=== PATIENT | female | born 1990 | race African-American/Black ===

== ENCOUNTER 2017-05-18 14:15 | Emergency (ER) | payer OTHER ==
[2017-05-18 14:43] VITALS: BP 101/67; BMI 32.0
[2017-05-18] MEDS ORDERED: IBUPROFEN 600 MG TABLET (FP) PO ONE (15:02)
--- NOTE | 2017-05-18 15:08 | PDOC ---
History of Present Illness - General Chief Complaint: Cold Symptoms Stated Complaint: COLD SYMPTOMS Time Seen by Provider: 05/18/17 14:54 History Source: Patient, Parent(s) Exam Limitations: No Limitations - History of Present Illness Initial Comments: 05/18/17 Patient came for evaluation of high fevers, body aches, headache and joint pain , moist nonproductive cough, and sore throat. 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 Has used ibuprofen with minimal resolved. Did not receive flu shot Timing/Duration: reports: constant, getting worse Severity: reports: mild, moderate Associated Symptoms: reports: cough, dizziness, fever/chills, headache, sore throat Past History - Travel Traveled outside of the country in the last 30 days: No Close contact w/someone who was outside of country & ill: No - Past Medical History Allergies/Adverse Reactions: Allergies Allergy/AdvReac Type Severity Reaction Status Date / Time No Known Drug Allergies Allergy Verified 05/18/17 15:03 Home Medications: Ambulatory Orders Azithromycin [Zithromax -] 250 mg PO UTDICT #6 tab 05/18/17 Metformin HCl [Glucophage -] 500 mg PO BID 05/18/17 Anemia: Yes (Sickle cell) COPD: No DVT: No Dementia: No Diabetes: No Disorders: Yes (polycystic Ovary Dx) - Immunization History Immunization Up to Date: Yes - Suicide/Smoking/Psychosocial Hx Smoking Status: No Smoking History: Never smoked Number of Cigarettes Smoked Daily: 0 Information on smoking cessation initiated: No Hx Alcohol Use: No Drug/Substance Use Hx: No Substance Use Type: None Review of Systems - Review of Systems Able to Perform ROS?: Yes Is the patient limited Prydeinig proficient: Yes Constitutional: Yes: Symptoms Reported, See HPI, Fever, Loss of Appetite, Malaise HEENTM: Yes: Symptoms Reported, Nose Congestion, Throat Pain, Throat Swelling Respiratory: Yes: Symptoms reported, See HPI, Cough. No: Wheezing Musculoskeletal: Yes: Symptoms Reported Integumentary: Yes: Symptoms Reported, See HPI Neurological: Yes: Symptoms reported, See HPI, Headache All Other Systems: Reviewed and Negative *Physical Exam - Vital Signs Last Vital Signs Temp Pulse Resp BP Pulse Ox 103 F H 118 H 18 101/67 98 05/18/17 14:37 05/18/17 14:37 05/18/17 14:37 05/18/17 14:37 05/18/17 14:37 - Physical Exam General Appearance: Yes: Nourished, Appropriately Dressed, Apparent Distress, Mild Distress, Moderate Distress HEENT: positive: ALETHEA, Normal ENT Inspection, TMs Normal, Pharynx Normal Respiratory/Chest: positive: Lungs Clear, Normal Breath Sounds Gastrointestinal/Abdominal: positive: Soft. 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 Patient discussed to start if fevers worsen, purulent drainage from nose or phlegm production starts or symptoms worsen. otherwise continue conservative treatment. repeat temp after ibuprofen 101.2 *DC/Admit/Observation/Transfer Diagnosis at time of Disposition: Viral syndrome - Discharge Dispostion Disposition: HOME Condition at time of disposition: Stable Admit: No - Prescriptions Prescriptions: Azithromycin [Zithromax -] 250 mg PO UTDICT #6 tab - Referrals Referrals: Tenzin Swenson MD [Primary Care Provider] - - Patient Instructions Printed Discharge Instructions: DI for Viral Upper Respiratory Infection -- Adult Additional Instructions: Rest, drink lots of fluids: Teas, water, soups, Pedialyte Saltwater gargles Steamy showers/seem to face break up mucus Avoid contact with others until fevers and cough resolved Lots of handwashing and good hygiene Continue [id number] medications for symptomatic relief Tylenol or Motrin for fever and pain Start azithromycin if fevers worsened, nasal drainage turns yellow or green, phlegm production, or symptoms worsen Followup with private physician in one to 2 days as needed Return to emergency department for worsened symptoms, fevers, dehydration - Post Discharge Activity Forms/Work/School Notes: Back to Work
[2017-05-18 15:56] VITALS: PULSE 112; TEMP 100.7
== END 2017-05-18 15:56 | disposition home or self-care (01) ==
LOC: JERFT 14:15 → JER 14:15 → JERFT 15:56
DX: J06.9 Acute upper respiratory infection, unspecified (principal); B97.89 Other viral agents as the cause of diseases classified elsewhere; E11.9 Type 2 diabetes mellitus without complications; Z79.84 Long term (current) use of oral hypoglycemic drugs; D57.1 Sickle-cell disease without crisis; E28.2 Polycystic ovarian syndrome
CPT/HCPCS: 87804; 99281-25

== ENCOUNTER 2018-09-24 09:12 | Inpatient (IN) | payer OTHER ==
[2018-09-24] MEDS ORDERED: PROMETHAZINE HCL 25 MG/1 ML VIAL IVPB ONE (09:57)
[2018-09-24] MEDS ORDERED: BUTORPHANOL TARTRATE 1 MG/ML VIAL IVPUSH ONE (09:57)
[2018-09-24] MEDS ORDERED: AMPICILLIN - 2 GM in SODIUM CHLORIDE 100 ML IVPB ONE (09:58)
[2018-09-24] MEDS: DEXTROSE 5%-LACTATED RINGERS 1,000 ML IV SCH ×2 (10:00→18:18)
[2018-09-24 10:52] LABS: BASO % 0.6 % (0-2.0); EOS % 0.5 % (0-4.5); HEMATOCRIT 33.7 % (32.4-45.2); LYMPH % 31.2 % (8-40); MCHC 32.7 g/dl (32.0-36.0); MEAN CELL VOLUME 82.8 fl (80-96); MEAN PLT VOLUME 8.4 fl (7.5-11.1); MONO % 12.4 % (3.8-10.2); NEUT % 55.3 % (42.8-82.8); PLATELET COUNT 343 K/MM3 (134-434); RBC 4.07 M/mm3 (3.60-5.2); RDW 15.5 % (11.6-15.6)
[2018-09-24] MEDS ORDERED: AMPICILLIN SODIUM 2 GM VIAL ONE ×2 (11:18→19:22)
[2018-09-24] MEDS ORDERED: SODIUM CHLORIDE 100 ML IVPB ONE (11:18)
[2018-09-24 11:24] LABS: BLOOD UREA NITROGEN 9 mg/dL (7-18); CALCIUM 9.1 mg/dL (8.5-10.1); CHLORIDE 106 mmol/L (98-107); CO2 26 mmol/L (21-32); GLUCOSE,RANDOM 75 mg/dL (74-106); POTASSIUM 4.4 mmol/L (3.5-5.1); SODIUM 138 mmol/L (136-145)
[2018-09-24 11:29] LABS: INR 0.97 (0.83-1.09); PROTHROMBIN TIME (PATIENT) 11.4 SEC (9.7-13.0)
[2018-09-24 11:30] VITALS: BMI 30.9
[2018-09-24 11:32] LABS: ACTIVATED PTT 27.5 SECONDS (25.2-36.5)
[2018-09-24 11:35] LABS: ANION GAP 7 MMOL/L (8-16)
[2018-09-24] MEDS ORDERED: TUBERCULIN PPD 5 TU/0.1ML SYRINGE (IN PATIENT USE ONLY) ID ONE (12:00)
--- NOTE | 2018-09-24 12:41 | HP ---
Past Medical History - Admission History of Present Illness: 28 yo @ 37 3/7 wks by first trimester ultrasound, EDC 10/12/2018 complicated by: 1. PCOS / infertility conceived with metformin and clomid 2. Poor weight gain during ~ 2 lbs Starting wt 164 (BMI 28) 3. Sickle Cell Trait - FOB not tested 4. Carpal Tunnel Syndrome - managed by OT / Plastics 5. GBS positive - no allergies Patient presents with chief complaint of contractions that began at 0830 and leakage of clear fluid. She reports movement, denies vaginal bleeding. Limitations to Obtaining History: No Limitations - Past Medical History Cardiovascular: No: HTN Pulmonary: No: Asthma Gastrointestinal: No: GERD Reproductive: Yes: Polycystic Ovary Syndrome ...: 1 ...Para: 0 ...Term: 0 ...: 0 ...Spon : 0 ...Induced : 0 ...LMP: 01/06/18 ... Weeks Gestation by Dates: 37.2 ...EDC by Dates: 10/13/18 ...EDC by Sono: 10/12/18 Heme/Onc: No: Anemia Musculoskeletal: Yes: Other (scoliosis) - Past Surgical History Past Surgical History: Yes: None Hx Myomectomy: No Hx Transabdominal Cerclage: No - Smoking History Smoking history: Never smoked Have you smoked in the past 12 months: No Aproximately how many cigarettes per day: 0 - Alcohol/Substance Use Hx Alcohol Use: No - Social History History of Recent Travel: No Home Medications - Allergies Allergies/Adverse Reactions: Allergies Allergy/AdvReac Type Severity Reaction Status Date / Time No Known Drug Allergies Allergy Verified 05/18/17 15:03 - Home Medications Home Medications: Ambulatory Orders Azithromycin [Zithromax -] 250 mg PO UTDICT #6 tab 05/18/17 Prenat 115/Iron Fum/Folic/Dss [ 19 Tablet] 1 tab PO DAILY 09/24/18 Family Disease History - Family Disease History Family History: Denies Review of Systems - Review of Systems Constitutional: reports: No Symptoms Cardiovascular: reports: No Symptoms Respiratory: reports: No Symptoms Gastrointestinal: reports: No Symptoms Musculoskeletal: reports: No Symptoms Neurological: reports: No Symptoms Endocrine: reports: No Symptoms Physical Exam - Maternity Vital Signs: Vital Signs Temperature 98.2 F 09/24/18 10:00 Pulse Rate 100 H 09/24/18 11:00 Respiratory Rate 20 09/24/18 11:00 Blood Pressure 140/78 09/24/18 11:00 O2 Sat by Pulse Oximetry (%) Constitutional: Yes: Well Nourished, No Distress, Calm Cardiovascular: Yes: Regular Rate and Rhythm Lungs: Clear to auscultation - Abdominal Exam/OB Number of Fetuses: Single Contractions: Yes Regularity: Regular Intensity: Mod/Strong Heart Rate (range): 135 Category: I Accelerations: Non-Uniform - Vaginal Exam/OB Vaginal Bleediing: No Dilatation (cm): 2 Effacement (%): 90 Amniotic Membrane Status: Ruptured Presentation: Vertex/Position Station: -4 - Physical Exam Psychiatric: Yes: Alert, Oriented - Labs Lab Results: CBC, BMP 09/24/18 10:30 09/24/18 10:30 PNL - B positive; antibody negative; RPR NR HIV neg HCV neg HBsAg neg; Varicella Immune; Rubella immune; Hg [place] ; GCT WNL; AFP WNL; GBS positive Assessment/Plan 28 yo @ 37 + wks in labor 1. Admit to L&D 2. Routine labs collected and sent 3. Consents reviewed and signed 4. GBS positive, will start ampicillin per protocol 5. Will offer pain medication upon patient request 6. Will proceed with expectant management
--- NOTE | 2018-09-24 13:32 | PN ---
Ante-Partal Exam - Subjective Subjective: Patient reports pain with contractions Vital Signs: Vital Signs Temperature 98.2 F 09/24/18 10:00 Pulse Rate 100 H 09/24/18 11:00 Respiratory Rate 20 09/24/18 11:00 Blood Pressure 140/78 09/24/18 11:00 O2 Sat by Pulse Oximetry (%) Bleeding: No Headache: No Visual changes: No Right upper quadrant pain: No - Contractions Contractions: Yes Regularity: Regular Intensity: Mod/Strong Monitor Mode: External - Exam during Labor Heart Rate: 145 Variability: Moderate Category: I Monitor Accelerations: Present Monitor Decelerations: None Exam: Vaginal Dilatation (cm): 6 Effacement (%): 90 Amniotic Membrane Status: Ruptured (clear fluid) Amniotic Fluid: Clear Presentation: Vertex Station: -3 - Intrapartum Hemorrhage Risk Medium Risk Factors: None High Risk Factors: None Risk Score: 0 Risk Level: Low Risk - Assessment/Plan Assessment/Plan: 28 yo active labor 1. Good cervical change 2. GBS positive - on ampicillin 3. Desires IV medication 4. Category I FHT 5. Will proceed wt expectant management
[2018-09-24] MEDS ORDERED: PROMETHAZINE HCL 25 MG/1 ML VIAL ONE ×2 (13:36→19:22)
[2018-09-24] MEDS: AMPICILLIN - 1 GM in SODIUM CHLORIDE 100 ML IVPB SCH ×2 (15:20→20:00)
[2018-09-24] MEDS ORDERED: AMPICILLIN SODIUM 1 GM VIAL ONE ×2 (15:22→15:30)
--- NOTE | 2018-09-24 19:07 | PN ---
Ante-Partal Exam - Subjective Subjective: Patient reports pain with contractoins Vital Signs: Vital Signs Temperature 98.8 F 09/24/18 14:00 Pulse Rate 85 09/24/18 16:50 Respiratory Rate 20 09/24/18 16:50 Blood Pressure 134/96 09/24/18 16:50 O2 Sat by Pulse Oximetry (%) Bleeding: No Headache: No Visual changes: No Right upper quadrant pain: No - Contractions Contractions: Yes Regularity: Regular Intensity: Mod/Strong Monitor Mode: External - Exam during Labor Heart Rate: 130 Variability: Moderate Category: I Monitor Accelerations: Present Monitor Decelerations: None Exam: Vaginal Dilatation (cm): 7 Effacement (%): 90 Amniotic Membrane Status: Ruptured Presentation: Vertex Station: -1 - Intrapartum Hemorrhage Risk Medium Risk Factors: None High Risk Factors: None Risk Score: 0 Risk Level: Low Risk - Assessment/Plan Assessment/Plan: 28 yo active labor 1. Good cervical change 2. Ampicillin for GBS 3. Decliens epidural, will continue IV pain medication 4. Will continue expectant management
[2018-09-24] MEDS ORDERED: BUTORPHANOL TARTRATE 2 MG/ML VIAL ONE (19:21)
[2018-09-24] MEDS ORDERED: BUTORPHANOL TARTRATE 2 MG/ML VIAL IVPUSH ONE (19:30)
[2018-09-24] MEDS ORDERED: PROMETHAZINE HCL 25 MG/1 ML VIAL IVPUSH ONE (19:30)
[2018-09-24] MEDS ORDERED: OXYTOCIN 20 UNITS in 0.9% NS 20 UNIT/1,000 ML INFUS.BAG IV ONE (20:26)
[2018-09-24] MEDS ORDERED: LIDOCAINE HCL 1% PRESERVATIVE FREE - 30ML VIAL ONE (20:26)
--- NOTE | 2018-09-24 20:52 | PN ---
Delivery - Delivery Vaginal Delivery: No Problems Type of Anesthesia: None Episiotomy/Laceration: 1st degree EBL (cc): 300 Delivery, Single - Stages of Labor Date 1st Stage Initiatied: 09/24/18 Date 2nd Stage Initiated: 09/24/18 Date of Delivery: 09/24/18 Time of Delivery: 20:35 Date Placenta Delivered: 09/24/18 Time Placenta Delivered: 20:44 - Condition of Infant Gender: Male Position: Left, OA - 1 Minute Total Score: 9 5 Minutes Total Score: 9 - [place] Feeding Plan Initial Plan: Elected not to breastfeed exclusively throughout hospitalization Remarks - Remarks Remarks: Patient progressed to fully dilated and at 2034 via delivered a viable male infant in AURA position, APGARs 9,9. Weight and length unknown at this time. Head delivered spontaneously. Right anterior shoulder noted to be difficult, left posterior shoulder delivered without difficulty followed by anterior right shoulder and body without difficulty. Infant with spontaneous cry and placed on mother's abdomen. Nose and mouth was bulb suctioned. Cord was clamped and cut. Perineum and vagina examined, a first degree laceration was noted and repaired in the usual fashion. Placenta was delivered spontaneously and intact. 20 units of pitocin in 1 L IVF was given. All counts correct x 2. Mother and stable in LDR. EBL 300cc.
[2018-09-24] MEDS ORDERED: BENZOCAINE 20% 57 GM BOTTLE TP PRN (20:53)
[2018-09-24] MEDS ORDERED: BISACODYL 10 MG SUPP.RECT RC PRN (20:53)
[2018-09-24] MEDS ORDERED: BENZOCAINE 28 GM HEMORRHOIDAL OINTMENT TP PRN (20:53)
[2018-09-24] MEDS ORDERED: IBUPROFEN 600 MG TABLET (FP) PO PRN (20:53)
[2018-09-24] MEDS ORDERED: ACETAMINOPHEN 325 MG TABLET (FP) PO PRN (20:53)
[2018-09-24] MEDS ORDERED: WITCH HAZEL 50% (TUCKS) 40 PAD/JAR PAD TP PRN (20:53)
[2018-09-24] MEDS ORDERED: METHYLERGONOVINE MALEATE 0.2 MG/1 ML AMP IM PRN (20:53)
[2018-09-24] MEDS ORDERED: OXYTOCIN 20 UNITS in 0.9% NS 20 UNIT/1,000 ML INFUS.BAG IV SCH (21:00)
[2018-09-25 07:16] LABS: BASO % 0.3 % (0-2.0); EOS % 0.1 % (0-4.5); HEMATOCRIT 31.9 % (32.4-45.2); HEMOGLOBIN 10.3 GM/dL (10.7-15.3); LYMPH % 19.4 % (8-40); MCH 27.1 pg (25.7-33.7); MCHC 32.3 g/dl (32.0-36.0); MEAN CELL VOLUME 83.7 fl (80-96); MEAN PLT VOLUME 8.2 fl (7.5-11.1); MONO % 10.4 % (3.8-10.2); NEUT % 69.8 % (42.8-82.8); PLATELET COUNT 287 K/MM3 (134-434); RBC 3.81 M/mm3 (3.60-5.2); RDW 15.8 % (11.6-15.6); WHITE BLOOD COUNT 12.6 K/mm3 (4.0-10.0)
--- NOTE | 2018-09-25 08:07 | PN ---
Post Progress Note - Subjective Subjective: Patient without acute complaints. Reports tolerating oral intake without nausea or vomiting. Ambulating without dizziness. Denies fevers or chills. Pain well controlled with oral pain medication. without difficulty. Passing flatus. Type of Delivery: Vital Signs: Vital Signs Temperature 98 F 09/25/18 06:00 Pulse Rate 100 H 09/25/18 06:00 Respiratory Rate 18 09/25/18 06:00 Blood Pressure 124/90 09/25/18 06:00 O2 Sat by Pulse Oximetry (%) Breast Exam: Yes: Soft Uterus: Yes: Fundus Firm, Fundus below umbilicus Abdomen/GI: Yes: Abdomen soft, Passing flatus, Tolerating PO. No: Abdominal Distention Lochia: Yes: Serosa Lochia, amount: Small Extremities: Yes: Calves non-tender, Edema (trace) Activity: Ambulating - Labs Labs: CBC WBC 12.6 K/mm3 (4.0-10.0) H 09/25/18 06:30 RBC 3.81 M/mm3 (3.60-5.2) 09/25/18 06:30 Hgb 10.3 GM/dL (10.7-15.3) L 09/25/18 06:30 Hct 31.9 % (32.4-45.2) L 09/25/18 06:30 MCV 83.7 fl (80-96) 09/25/18 06:30 MCH 27.1 pg (25.7-33.7) 09/25/18 06:30 MCHC 32.3 g/dl (32.0-36.0) 09/25/18 06:30 RDW 15.8 % (11.6-15.6) H 09/25/18 06:30 Plt Count 287 K/MM3 (134-434) 09/25/18 06:30 MPV 8.2 fl (7.5-11.1) 09/25/18 06:30 Absolute Neuts (auto) 8.8 K/mm3 (1.5-8.0) H 09/25/18 06:30 Neutrophils % 69.8 % (42.8-82.8) D 09/25/18 06:30 Lymphocytes % 19.4 % (8-40) D 09/25/18 06:30 Monocytes % 10.4 % (3.8-10.2) H 09/25/18 06:30 Eosinophils % 0.1 % (0-4.5) 09/25/18 06:30 Basophils % 0.3 % (0-2.0) 09/25/18 06:30 Nucleated RBC % 0 % (0-0) 09/25/18 06:30 Assessment/Plan 28 yo ppd#1 s/p , afebrile, vital signs stable, doing well 1. Continue routine care. 2. AM CBC with mild anemia, will start ferrous sulfate 3. Rh positive status, no rhogam indicated. 4. Encourage ambulation 5. Continue oral pain medication 6. Anticipate discharge home day #2
[2018-09-25] MEDS: FERROUS SO4 325 MG TABLET (FP) PO SCH ×3 (10:27→17:38)
[2018-09-25] MEDS: PRENATAL VITAMINS W/ FOLIC ACID TABLET (FP) PO SCH (10:27)
[2018-09-25] MEDS: DEXTROSE 5%-LACTATED RINGERS 1,000 ML IV SCH (20:33)
[2018-09-25] MEDS: AMPICILLIN - 1 GM in SODIUM CHLORIDE 100 ML IVPB SCH (20:53)
[2018-09-25] MEDS ORDERED: SENNOSIDES/DOCUSATE COMBO (SENNA PLUS) TABLET (UD) PO PRN (22:00)
--- NOTE | 2018-09-26 07:19 | DS ---
Physical Exam-DIRECTOR TECHNICAL Vital Signs: Vital Signs Temperature 98.2 F 09/25/18 22:00 Pulse Rate 89 09/25/18 22:00 Respiratory Rate 18 09/25/18 22:00 Blood Pressure 125/85 09/25/18 22:00 O2 Sat by Pulse Oximetry (%) Constitutional: Yes: Well Nourished, No Distress, Calm Eyes: Yes: WNL, Conjunctiva Clear, EOM Intact HENT: Yes: WNL, Atraumatic, Normocephalic Neck: Yes: WNL, Supple, Trachea Midline Cardiovascular: Yes: WNL, Regular Rate and Rhythm Respiratory: Yes: WNL, Regular, CTA Bilaterally Gastrointestinal: Yes: WNL ...Rectal Exam: Yes: WNL Renal/: Yes: WNL ....Post : Yes: Uterus firm, Uterus non-tender, Slight lochia rubra Breast(s): Yes: WNL Musculoskeletal: Yes: WNL Extremities: Yes: WNL Edema: No Integumentary: Yes: WNL Neurological: Yes: WNL, Alert, Oriented ...Motor Strength: WNL Psychiatric: Yes: WNL, Alert, Oriented Labs: CBC, BMP 09/25/18 06:30 09/24/18 10:30 Delivery - Delivery Vaginal Delivery: No Problems, Spontaneous Type of Anesthesia: None Episiotomy/Laceration: 1st degree EBL (cc): 300 Delivery, Single - Stages of Labor Date 1st Stage Initiatied: 09/24/18 Time 1st Stage Initiated: 08:20 Date 2nd Stage Initiated: 09/24/18 Time 2nd Stage Initiated: 20:00 Date of Delivery: 09/24/18 Time of Delivery: 20:35 Time Placenta Delivered: 20:44 Placenta: Yes: Spontaneous - Condition of Shank 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 You may walk unlimited viviana of and climb stairs. You may resume driving the car when you feel safe and comfortable behind the wheel. No sexual activity as instructed. Diet There are no dietary restrictions. Eat healthy, high-fiber foods. Drink 6 to 8 glasses of liquid each day. This will assist in keeping your bowels are regular. Pain management You may take Tylenol or acetaminophen or Ibuprofen (for example, Motrin, Advil etc.) from my pain prescription medication is ordered should be taken as prescribed for moderate to severe pain. Call MD for any of the following: Severe pain not relieved by medication Fever of 101 or higher Excessive bleeding or drainage on dressing Inability to urinate Referrals: Tenzin Swenson MD [Staff Physician] - Disposition: HOME - Home Medications Comprehensive Discharge Medication List: Ambulatory Orders Azithromycin [Zithromax -] 250 mg PO UTDICT #6 tab 05/18/17 Prenat 115/Iron Fum/Folic/Dss [ 19 Tablet] 1 tab PO DAILY 09/24/18 Ibuprofen [Motrin -] 600 mg PO QID #28 tablet 09/25/18
[2018-09-26] MEDS: FERROUS SO4 325 MG TABLET (FP) PO SCH ×2 (09:11→13:39)
[2018-09-26] MEDS: PRENATAL VITAMINS W/ FOLIC ACID TABLET (FP) PO SCH (09:12)
[2018-09-26 14:59] VITALS: BP 126/82; PULSE 86; TEMP 98.3
--- NOTE | 2018-09-29 15:07 | PATH ---
Surgical Pathology Report Patient Name: MEHUL BURNS Med. Rec. 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 Electronically Signed Radha Farias M.D. Gross Description The specimen is received fresh labeled placenta and is a 450 gram, 23.0 x 15.0 x 1.7 cm. placenta with attached membranes and umbilical cord. The attached membranes are awan, translucent with focal opacities and insert marginally. The umbilical cord measures 35 cm. in length and averages 1.1 cm. in diameter. The cord inserts eccentrically, 2 cm. to the nearest margin. No true knots or strictures are identified. Cut surface of the umbilical cord reveals 3 vessels. The surface is mckeon-blue with minimal fibrin deposition and appropriate caliber vessels. The maternal surface is red-brown with focal defects. Sectioning reveals red-brown, spongy parenchyma. No lesions are identified. Senior Landscape Architect sections are submitted in three cassettes as follows: 1- membrane rolls and umbilical cord; 2-3- full thickness sections of placenta. /09/26/2018 [place]09/26/2018
== END 2018-09-26 13:30 | disposition home or self-care (01) | DRG 560 ==
LOC: JDEL 09:12 → JLDR 09:40 → J3W 22:47
PROVIDERS: ADMIT Obstetrics & Gynecology; ATTEND Obstetrics & Gynecology
PROC: 10E0XZZ Delivery of Products of Conception, External Approach (ICD-10-PCS; principal; 2018-09-24)
PROC: 0HQ9XZZ Repair Perineum Skin, External Approach (ICD-10-PCS; 2018-09-24)
DX: O99.824 Streptococcus B carrier state complicating childbirth (principal); M41.9 Scoliosis, unspecified; O70.0 First degree perineal laceration during delivery; O99.013 Anemia complicating pregnancy, third trimester; D57.3 Sickle-cell trait; O99.283 Endocrine, nutritional and metabolic diseases complicating pregnancy, third trimester; E28.2 Polycystic ovarian syndrome; O26.893 Other specified pregnancy related conditions, third trimester; Z3A.37 37 weeks gestation of pregnancy; Z37.0 Single live birth
CPT/HCPCS: 36415; 59409; 80048; 85025; 85610; 85730; 86593; 86850; 86900; 86901; 88307-TC

== ENCOUNTER 2018-11-13 17:51 | Emergency (ER) | payer OTHER ==
[2018-11-13] MEDS ORDERED: TETRACAINE 0.5% HCL 0.6ML DROPPER.BOTTLE OD ONE (17:55)
--- NOTE | 2018-11-13 17:55 | PDOC ---
Rapid Medical Evaluation Time Seen by Provider: 11/13/18 17:54 Medical Evaluation: Allergies Allergy/AdvReac Type Severity Reaction Status Date / Time No Known Drug Allergies Allergy Verified 09/24/18 21:22 11/13/18 17:54 I have performed a brief in-person evaluation of this patient. The patient presents with a chief complaint of: pt reports playing w/ nephew and getting struck to R eye and it's getting worse Pertinent physical exam findings: injected, swollen R eye I have ordered the following: tetracaine The patient will proceed to the ED for further evaluation.
[2018-11-13 17:57] VITALS: BP 123/89; PULSE 97; TEMP 98.5; BMI 27.4
[2018-11-13] MEDS ORDERED: ERYTHROMYCIN 0.5% OPHTHALMIC OINTMENT 3.5 GM TUBE OD ONE (19:02)
[2018-11-13] MEDS ORDERED: ERYTHROMYCIN 0.5% OPHTHALMIC OINTMENT 3.5 GM TUBE ONE (19:05)
--- NOTE | 2018-11-13 19:06 | PDOC ---
History of Present Illness - General Chief Complaint: Eye Problem Stated Complaint: PAINFUL RT EYE Time Seen by Provider: 11/13/18 17:54 History Source: Patient Exam Limitations: No Limitations - History of Present Illness Initial Comments: 11/13/18 19:01 HISTORY OF PRESENT ILLNESS: This is a 28-year-old woman denies medical history presents emergency Department with right eye pain for 2 days status post accidental poking her right eye. She was playing with her infant nephew when he reached up poking her in the right eye with his index finger. She noted increased pain since that time. She denies any change in vision since the incident. No recent travel or sick contacts. PAST MEDICAL HISTORY: Denies past medical history SURGICAL HISTORY: Denies ALLERGIES: No known drug allergies REVIEW OF SYSTEMS General/Constitutional: Denies fever or chills. Denies weakness, weight change. HEENT: see HPI Cardiovascular: Denies chest pain or shortness of breath. Respiratory: Denies cough, wheezing, or hemoptysis. Gastrointestinal: Denies nausea, vomiting, diarrhea or constipation. Denies rectal bleeding. Genitourinary: Denies dysuria, frequency, or change in urination. Musculoskeletal: Denies joint or muscle swelling or pain. Denies neck or back pain. Skin and breasts: Denies rash or easy bruising. Neurologic: Denies headache, vertigo, loss of consciousness, or loss of sensation. Psychiatric: Denies depression or anxiety. Endocrine: Denies increased thirst. Denies abnormal weight change. Hematologic/Lymphatic: Denies anemia, easy bleeding, or history of blood clots. Allergic/Immunologic: Denies hives or skin allergy. Denies latex allergy. PHYSICAL EXAM General Appearance: Well-appearing, appropriately dressed. No apparent distress , no intoxication. HEENT: EOMI, PERRLA, normal ENT inspection, normal voice, TMs normal, pharynx normal. No conjunctival pallor. No photophobia, scleral icterus. No hyphema. No changes s/p fluoroscein staining. No foreign body present under upper eyelid. Neck: Supple. Trachea midline. No tenderness, rigidity, carotid bruit, stridor , lymphadenopathy, or thyromegaly. Respiratory/Chest: Lungs CTAB. No shortness of breath, chest tenderness, respiratory distress, accessory muscle use. No crackles, rales, rhonchi, stridor , wheezing, dullness Cardiovascular: RRR. S1, S2. No JVD, murmur, bradycardia, tachycardia. Past History - Past Medical History Allergies/Adverse Reactions: Allergies Allergy/AdvReac Type Severity Reaction Status Date / Time No Known Drug Allergies Allergy Verified 11/13/18 18:52 Home Medications: Ambulatory Orders Erythromycin 0.5% Eye Ointment [Erythromycin 0.5% Eye Ointment -] 1 applic OD TID #1 tube 11/13/18 Anemia: Yes (Sickle cell) Asthma: No Cancer: No Cardiac Disorders: No COPD: No DVT: No Dementia: No Diabetes: No Disorders: Yes (polycystic Ovary Dx) HTN: No Seizures: No Thyroid Disease: No - Immunization History Immunization Up to Date: Yes - Suicide/Smoking/Psychosocial Hx Smoking Status: No Smoking History: Never smoked Have you smoked in the past 12 months: No Number of Cigarettes Smoked Daily: 0 Hx Alcohol Use: No Drug/Substance Use Hx: No Substance Use Type: None Hx Substance Use Treatment: No *Physical Exam - Vital Signs Last Vital Signs Temp Pulse Resp BP Pulse Ox 98.5 F 97 H 18 123/89 97 11/13/18 17:55 11/13/18 17:55 11/13/18 17:55 11/13/18 17:55 11/13/18 17:55 Medical Decision Making - Medical Decision Making 11/13/18 19:05 A/P: 28-year-old woman with right thigh pain for 2 days EYE EXAMINATION: Visual acuity: 20/20 in the left eye, 20/20 in the right eye, near, uncorrected The lid and lashes are normal. Extraocular movements are intact. The conjunctiva is clear without erythema, injection, or discharge The corneal surface is normal post tetracaine and fluorescein. There is no corneal abrasion or foreign body. There is no abnormal fluorescein uptake. The pupils are equal, round and reactive to light. The fundus shows normal vessels and normal discs. No foreign bodies present under the upper eyelid. Erythromycin ointment here now. Discharge home with erythromycin ointment and up the pneumology follow-up. *DC/Admit/Observation/Transfer Diagnosis at time of Disposition: Corneal irritation Qualifiers: Laterality: right Qualified Code(s): H18.891 - Other specified disorders of cornea, right eye - Discharge Dispostion Disposition: HOME Condition at time of disposition: Stable Decision to Admit order: No - Prescriptions Prescriptions: Erythromycin 0.5% Eye Ointment [Erythromycin 0.5% Eye Ointment -] 1 applic OD TID #1 tube - Referrals Referrals: Parker Neumann MD [Primary Care Provider] - Alo Pena MD [Staff Physician] - Tao Davis MD [Staff Physician] - - Patient Instructions Additional Instructions: Rest, avoid rubbing eyes Wash hands frequently as this is very contagious Wash hands, use eye drops as directed, wash hands after use Do not share eye ointment with other person to may become infected as this will infect them Erthromycin ointment to affected eye 4 times a day for 5 days Avoid contact with others until redness and discharge is gone from eyes. Followup with ophthalmology or private physician as needed - Post Discharge Activity
== END 2018-11-13 19:10 | disposition home or self-care (01) ==
LOC: JERFT 17:51
DX: S05.8X1A Other injuries of right eye and orbit, initial encounter (principal); W50.0XXA Accidental hit or strike by another person, initial encounter; Y93.89 Activity, other specified; Y92.89 Other specified places as the place of occurrence of the external cause; Y99.8 Other external cause status
CPT/HCPCS: 99281-25

== ENCOUNTER 2020-05-19 09:50 | Emergency (ER) | payer OTHER | END 2020-05-19 11:34 | disposition home or self-care (01) | LOC: JVIRT 09:50 | DX: Z11.59 Encounter for screening for other viral diseases (principal) | CPT/HCPCS: C9803; Q3014-GT; U0003 ==

== ENCOUNTER 2020-06-20 15:57 | Emergency (ER) | payer OTHER ==
[2020-06-20 16:55] VITALS: BMI 28.3
[2020-06-20] MEDS ORDERED: ASPIRIN 81 MG CHEWABLE TABLETS PO ONE (18:14)
[2020-06-20] MEDS ORDERED: hydrOXYzine PAMOATE 25 MG CAPSULE (FP) PO ONE ×2 (18:15→19:59)
[2020-06-20] MEDS ORDERED: MAG HYDROX/AL HYDROX/SIMETH 30 ML UNIT-DOSE CUP PO ONE (18:15)
[2020-06-20] MEDS ORDERED: ASPIRIN 81 MG CHEWABLE TABLETS ONE (19:58)
[2020-06-20] MEDS ORDERED: MAG HYDROX/AL HYDROX/SIMETH 30 ML UNIT-DOSE CUP ONE (19:59)
[2020-06-20 20:34] LABS: BASO % 0.5 % (0-2.0); EOS % 1.3 % (0-4.5); HEMATOCRIT 39.4 % (32.4-45.2); HEMOGLOBIN 13.2 GM/dL (10.7-15.3); LYMPH % 34.4 % (8-40); MCHC 33.4 g/dl (32.0-36.0); MEAN CELL VOLUME 92.7 fl (80-96); MEAN PLT VOLUME 7.8 fl (7.5-11.1); MONO % 5.6 % (3.8-10.2); NEUT % 58.2 % (42.8-82.8); PLATELET COUNT 393 K/MM3 (134-434); RBC 4.25 M/mm3 (3.60-5.2); RDW 12.7 % (11.6-15.6); WHITE BLOOD COUNT 8.6 K/mm3 (4.0-10.0)
[2020-06-20 20:40] LABS: INR 1.03 (0.83-1.09); PROTHROMBIN TIME (PATIENT) 12.4 SEC (9.7-13.0)
[2020-06-20 20:42] LABS: ACTIVATED PTT 30.2 SECONDS (25.2-36.5)
[2020-06-20 20:57] LABS: PH,URINE 6.5 (5.0-8.0); URINE APPEARANCE CLOUDY; URINE BILIRUBIN NEGATIVE (NEGATIVE); URINE COLOR YELLOW; URINE GLUCOSE (UA) NEGATIVE (NEGATIVE); URINE KETONE NEGATIVE (NEGATIVE); URINE LEUK ESTERASE NEGATIVE (NEGATIVE); URINE NITRITE NEGATIVE (NEGATIVE); URINE PROTEIN NEGATIVE (NEGATIVE); URINE UROBILINOGEN 0.2 mg/dL (0.2-1.0)
[2020-06-20 21:00] LABS: HCG,QUALITATIVE URINE Negative
[2020-06-20 21:01] LABS: CHLORIDE 108 mmol/L (98-107); POTASSIUM 4.4 mmol/L (3.5-5.1); SODIUM 141 mmol/L (136-145)
[2020-06-20 21:03] LABS: CALCIUM 9.3 mg/dL (8.5-10.1)
[2020-06-20 21:04] LABS: ALBUMIN 4.2 g/dl (3.4-5.0); ANION GAP 8 MMOL/L (8-16); BLOOD UREA NITROGEN 13.7 mg/dL (7-18); CO2 26 mmol/L (21-32); GLUCOSE,RANDOM 75 mg/dL (74-106); MAGNESIUM 1.9 mg/dL (1.8-2.4)
[2020-06-20 21:07] LABS: CREATININE 0.9 mg/dL (0.55-1.3); SGOT/AST 11 U/L (15-37); SGPT/ALT 19 U/L (13-61)
[2020-06-20 21:08] LABS: BILIRUBIN,TOTAL 0.7 mg/dL (0.2-1); TOT PROT 8.1 g/dl (6.4-8.2)
[2020-06-20 21:09] LABS: ALK PHOS 63 U/L (45-117)
[2020-06-20 21:44] VITALS: BP 122/86; PULSE 86; TEMP 98.3
[2020-06-21 00:01] LABS: RETICULOCYTES 1.27 % (0.5-1.5)
== END 2020-06-20 21:44 | disposition home or self-care (01) ==
LOC: JER 15:57
DX: R07.89 Other chest pain (principal)
CPT/HCPCS: 36415; 71046-TC-FY; 80053; 81003; 82550; 82553; 83735; 84484; 84703; 85025; 85045; 85379; 85610; 85730; 87086; 93005; 93010; 99285-25

== ENCOUNTER 2020-08-12 10:35 | Emergency (ER) | payer OTHER | END 2020-08-12 11:25 | disposition home or self-care (01) | LOC: JVIRT 10:35 | DX: Z20.822 Contact with and (suspected) exposure to COVID-19 (principal) | CPT/HCPCS: C9803; G2251-GT; Q3014-GT; U0003 ==

== ENCOUNTER 2020-11-18 13:59 | Emergency (ER) | payer OTHER ==
[2020-11-18 14:56] VITALS: BP 114/81; PULSE 113; TEMP 98.6; BMI 27.6
== END 2020-11-18 17:30 | disposition home or self-care (01) ==
LOC: JER 13:59
DX: R20.2 Paresthesia of skin (principal)
CPT/HCPCS: 99283-25

== ENCOUNTER 2021-11-17 20:04 | Emergency (ER) | payer OTHER ==
[2021-11-17 20:34] VITALS: BP 110/75; PULSE 77; TEMP 98.9; BMI 26.5
[2021-11-17 20:56] LABS: HEMATOCRIT 36.9 % (32.4-45.2); HEMOGLOBIN 13.2 G/dL (10.7-15.3); MCH 32.1 pg (25.7-33.7); MCHC 35.6 g/dl (32.0-36.0); MEAN CELL VOLUME 89.9 fl (80-96); MEAN PLT VOLUME 7.2 fl (7.5-11.1); PLATELET COUNT 376.2 10^3/uL (134-434); RDW 13.9 % (11.6-15.6); WHITE BLOOD COUNT 7.3 10^3/uL (4.0-10.8)
[2021-11-17 21:06] LABS: PLATELET ESTIMATE ADEQUATE
[2021-11-17 21:14] LABS: ALBUMIN 4.1 g/dl (3.4-5.0); BILIRUBIN,TOTAL 0.6 mg/dl (0.2-1); CALCIUM 9.6 mg/dl (8.5-10); CREATININE 0.9 mg/dl (0.55-1.3); TOT PROT 7.5 g/dl (6.4-8.2)
== END 2021-11-17 21:31 | disposition home or self-care (01) ==
LOC: FER 20:04
DX: R42 Dizziness and giddiness (principal)
CPT/HCPCS: 36415; 80053; 81025; 85025; 99283-25

== ENCOUNTER 2022-07-09 18:36 | Emergency (ER) | payer OTHER ==
[2022-07-09] MEDS ORDERED: ACETAMINOPHEN 500 MG TABLET (FP) PO ONE (18:50)
[2022-07-09 18:53] VITALS: BP 123/90; PULSE 84; RESP 16; TEMP 98.3; BMI 31.1
[2022-07-09] MEDS ORDERED: ACETAMINOPHEN 500 MG TABLET (FP) ONE (19:05)
== END 2022-07-09 20:50 | disposition home or self-care (01) ==
LOC: FER 18:36
DX: R20.2 Paresthesia of skin (principal)
CPT/HCPCS: 72125-TC; 84703; 99284-25

== ENCOUNTER 2023-09-05 18:29 | Inpatient (IN) | payer OTHER ==
[2023-09-05 20:34] LABS: BASO % 0.4 % (0-2.0); EOS % 0.7 % (0-4.5); HEMATOCRIT 34.6 % (32.4-45.2); HEMOGLOBIN 11.4 GM/dL (10.7-15.3); LYMPH % 32.5 % (8-40); MCH 27.9 pg (25.7-33.7); MCHC 32.8 g/dl (32.0-36.0); MEAN CELL VOLUME 84.9 fl (80-96); MONO % 10.2 % (3.8-10.2); NEUT % 56.2 % (42.8-82.8); PLATELET COUNT 389 10^3/uL (134-434); RBC 4.08 M/mm3 (3.60-5.2); RDW 15.7 % (11.6-15.6); WHITE BLOOD COUNT 6.9 K/mm3 (4.0-10.0)
[2023-09-05 20:42] LABS: INR 0.99 (0.83-1.09); PROTHROMBIN TIME (PATIENT) 11.5 SEC (9.7-13.0)
[2023-09-05 20:45] LABS: ACTIVATED PTT 24.4 SECONDS (25.2-36.5)
[2023-09-05 21:06] LABS: POTASSIUM 4.2 mmol/L (3.5-5.1)
[2023-09-05 21:07] LABS: CALCIUM 9.2 mg/dL (8.5-10.1)
[2023-09-05 21:08] LABS: BLOOD UREA NITROGEN 8.4 mg/dL (7-18)
[2023-09-05 21:12] LABS: CREATININE 0.8 mg/dL (0.55-1.3)
[2023-09-05] MEDS: LACTATED RINGERS SOLUTION 1,000 ML IV SCH (21:15)
[2023-09-05] MEDS ORDERED: PROMETHAZINE HCL 25 MG/1 ML VIAL ONE (21:21)
[2023-09-05] MEDS ORDERED: BUTORPHANOL TARTRATE 2 MG/ML VIAL ONE (21:21)
[2023-09-05] MEDS: PROMETHAZINE HCL 25 MG/1 ML VIAL IVPB ONE (21:30)
[2023-09-05] MEDS: BUTORPHANOL TARTRATE 1 MG/ML VIAL IVPUSH ONE (21:30)
[2023-09-05 21:51] VITALS: BMI 33.6
[2023-09-05 22:06] LABS: HIV INTERPRETATION NEGATIVE (NEGATIVE)
[2023-09-05] MEDS ORDERED: LIDOCAINE HCL 1% PRESERVATIVE FREE - 30ML VIAL ONE (22:06)
[2023-09-05] MEDS ORDERED: OXYTOCIN 20 UNITS in 0.9% NS 20 UNIT/1,000 ML INFUS.BAG IV ONE (22:07)
[2023-09-06] MEDS: OXYTOCIN 20 UNITS in 0.9% NS 20 UNIT/1,000 ML INFUS.BAG IV SCH (01:20)
[2023-09-06] MEDS ORDERED: METHYLERGONOVINE MALEATE 0.2 MG/1 ML AMP IM PRN (01:31)
[2023-09-06] MEDS ORDERED: BISACODYL 10 MG SUPP.RECT RC PRN (01:31)
[2023-09-06] MEDS ORDERED: BENZOCAINE 28 GM HEMORRHOIDAL OINTMENT TP PRN (01:31)
[2023-09-06] MEDS ORDERED: oxyCODONE HCL 5 MG TABLET PO PRN (01:31)
[2023-09-06 02:00] LABS: CORD HCO3 19.9 mmHg (20-29); CORD PCO2 40.4 mmHg (30-78); CORD pH 7.31 (7.14-7.44)
[2023-09-06] MEDS: DEXTROSE 5%-LACTATED RINGERS 1,000 ML IV SCH (02:40)
[2023-09-06] MEDS: OXYTOCIN 30 UNITS in 0.9% NS 30 UNIT/500 ML INFUS.BAG IVPB SCH (02:41)
[2023-09-06 12:38] LABS: POC NITRAZINE POS
[2023-09-06] MEDS: IBUPROFEN 600 MG TABLET (FP) PO PRN (20:50)
[2023-09-06] MEDS: BENZOCAINE 20% 57 GM BOTTLE TP PRN (20:53)
[2023-09-06] MEDS: WITCH HAZEL 50% (TUCKS) 40 PAD/JAR PAD TP PRN (20:53)
[2023-09-06 21:28] VITALS: RESP 18
[2023-09-07] MEDS: ACETAMINOPHEN 325 MG TABLET (FP) PO PRN (03:47)
[2023-09-07 08:13] LABS: BASO % 0.3 % (0-2.0); EOS % 1.1 % (0-4.5); HEMATOCRIT 33.1 % (32.4-45.2); HEMOGLOBIN 10.9 GM/dL (10.7-15.3); MCH 27.8 pg (25.7-33.7); MCHC 32.8 g/dl (32.0-36.0); MEAN CELL VOLUME 84.7 fl (80-96); MEAN PLT VOLUME 7.8 fl (7.5-11.1); MONO % 8.9 % (3.8-10.2); NEUT % 55.7 % (42.8-82.8); PLATELET COUNT 359 10^3/uL (134-434); RBC 3.91 M/mm3 (3.60-5.2); RDW 15.7 % (11.6-15.6); WHITE BLOOD COUNT 9.6 K/mm3 (4.0-10.0)
[2023-09-07] MEDS ORDERED: SENNOSIDES/DOCUSATE COMBO (SENNA PLUS) TABLET (UD) PO PRN (22:00)
[2023-09-08 09:49] VITALS: BP 107/71; PULSE 98; TEMP 97.8
== END 2023-09-08 11:41 | disposition home or self-care (01) | DRG 560 ==
LOC: JDEL 18:29 → JLDR 19:15 → J3W 09-06 04:26
PROVIDERS: ADMIT Obstetrics & Gynecology; ATTEND Obstetrics & Gynecology
PROC: 10E0XZZ Delivery of Products of Conception, External Approach (ICD-10-PCS; principal; 2023-09-06)
PROC: 0W8NXZZ Division of Female Perineum, External Approach (ICD-10-PCS; 2023-09-06)
DX: O80 Encounter for full-term uncomplicated delivery (principal); Z3A.38 38 weeks gestation of pregnancy; Z37.0 Single live birth
CPT/HCPCS: 36415; 36600; 80048; 82803; 83986-QW; 85025; 85610; 85730; 86780; 86850; 86900; 86901; 87389

== ENCOUNTER 2024-11-19 11:37 | Inpatient (IN) | payer OTHER ==
[2024-11-19] MEDS: ELECTROLYTE-148 SOLN 1,000 ML IV SCH (12:30)
[2024-11-19 12:46] LABS: ABSOLUTE IMMATURE GRANULOCYTES 0.04 x10^3/uL (0.0-0.031); BASOPHILS # 0.02 x10^3/uL (0.01-0.08); EOSINOPHIL % 0.6 % (0.7-5.8); EOSINOPHILS # 0.05 x10^3/uL (0.04-0.36); HEMATOCRIT 33.6 % (34.1-44.9); HEMOGLOBIN 10.6 g/dL (11.2-15.7); MCHC 31.5 g/dl (32.2-35.5); MEAN CELL VOLUME 84.8 fl (79.4-94.8); MEAN PLT VOLUME 9.7 fl (9.4-12.3); MONOCYTE # 0.74 x10^3/uL (0.24-0.86); MONOCYTE % 9.2 % (4.7-12.5); PLATELET COUNT 372 x10^3/uL (182-369); RDW 15.2 % (12.1-16.8)
[2024-11-19 12:53] LABS: INR 1.04 (0.83-1.09); PROTHROMBIN TIME (PATIENT) 11.3 SEC (9.7-13.0)
[2024-11-19 12:56] LABS: ACTIVATED PTT 26.4 SECONDS (25.2-36.5)
[2024-11-19 13:03] VITALS: BMI 33.5
[2024-11-19 13:03] LABS: BLOOD UREA NITROGEN 8.2 mg/dL (7-18); CALCIUM 9.4 mg/dL (8.5-10.1)
[2024-11-19 13:07] LABS: CREATININE 0.8 mg/dL (0.55-1.3)
[2024-11-19] MEDS ORDERED: OXYTOCIN 30 UNITS in 0.9% NS 30 UNIT/500 ML INFUS.BAG IVPB ONE (13:35)
[2024-11-19] MEDS: OXYTOCIN 30 UNITS in 0.9% NS 30 UNIT/500 ML INFUS.BAG IVPB SCH (13:35)
[2024-11-19 14:01] LABS: HIV INTERPRETATION NEGATIVE (NEGATIVE)
[2024-11-19] MEDS ORDERED: BUTORPHANOL TARTRATE 2 MG/ML VIAL ONE (15:52)
[2024-11-19] MEDS ORDERED: PROMETHAZINE HCL 25 MG/1 ML VIAL ONE (15:53)
[2024-11-19] MEDS: PROMETHAZINE HCL 25 MG/1 ML VIAL IVPB ONE (16:00)
[2024-11-19] MEDS: BUTORPHANOL TARTRATE 1 MG/ML VIAL IVPUSH PRN (16:00)
[2024-11-19] MEDS ORDERED: OXYTOCIN 20 UNITS in 0.9% NS 20 UNIT/1,000 ML INFUS.BAG IV ONE (17:20)
[2024-11-19] MEDS ORDERED: METHYLERGONOVINE MALEATE 0.2 MG/1 ML AMP IM PRN (18:21)
[2024-11-19] MEDS ORDERED: BISACODYL 10 MG SUPP.RECT RC PRN (18:21)
[2024-11-19] MEDS ORDERED: WITCH HAZEL 50% (TUCKS) 40 PAD/JAR PAD TP PRN (18:21)
[2024-11-19] MEDS ORDERED: BENZOCAINE 28 GM HEMORRHOIDAL OINTMENT TP PRN (18:21)
[2024-11-19] MEDS ORDERED: ACETAMINOPHEN 325 MG TABLET (FP) PO PRN (18:21)
[2024-11-19] MEDS ORDERED: oxyCODONE HCL 5 MG TABLET PO PRN (18:21)
[2024-11-19] MEDS ORDERED: BENZOCAINE 20% 57 GM BOTTLE TP PRN (18:21)
[2024-11-19] MEDS: OXYTOCIN 20 UNITS in 0.9% NS 20 UNIT/1,000 ML INFUS.BAG IV SCH (18:30)
[2024-11-19 18:58] LABS: CORD HCO3 20.8 mmHg (20-29); CORD PCO2 59.4 mmHg (30-78); CORD pH 7.162 (7.14-7.44)
[2024-11-19 22:41] VITALS: RESP 18
[2024-11-20 07:49] LABS: ABSOLUTE IMMATURE GRANULOCYTES 0.06 x10^3/uL (0.0-0.031); BASOPHILS # 0.04 x10^3/uL (0.01-0.08); EOSINOPHIL % 0.1 % (0.7-5.8); EOSINOPHILS # 0.02 x10^3/uL (0.04-0.36); HEMATOCRIT 28.9 % (34.1-44.9); MCHC 31.1 g/dl (32.2-35.5); MEAN CELL VOLUME 84.8 fl (79.4-94.8); MEAN PLT VOLUME 9.5 fl (9.4-12.3); MONOCYTE # 1.62 x10^3/uL (0.24-0.86); MONOCYTE % 10.8 % (4.7-12.5); PLATELET COUNT 320 x10^3/uL (182-369); RDW 15.3 % (12.1-16.8)
[2024-11-20] MEDS ORDERED: SENNOSIDES/DOCUSATE COMBO (SENNA PLUS) TABLET (UD) PO PRN (22:00)
[2024-11-21 10:56] VITALS: BP 121/89; PULSE 89; TEMP 97.9
[2024-11-21] MEDS: IBUPROFEN 600 MG TABLET (FP) PO PRN (19:08)
== END 2024-11-21 21:15 | disposition home or self-care (01) | DRG 560 ==
LOC: JLDR 11:37 → J3W 20:35
PROVIDERS: ADMIT Obstetrics & Gynecology; ATTEND Obstetrics & Gynecology
PROC: 10E0XZZ Delivery of Products of Conception, External Approach (ICD-10-PCS; principal; 2024-11-19)
DX: O24.420 Gestational diabetes mellitus in childbirth, diet controlled (principal); O99.213 Obesity complicating pregnancy, third trimester; Z3A.37 37 weeks gestation of pregnancy; Z37.0 Single live birth
CPT/HCPCS: 36415; 36600; 59409; 80048; 82803; 82962; 85025; 85610; 85730; 86780; 86850; 86900; 86901; 87389